=== PATIENT | male | born 1975 | race Hispanic/Latino ===

== ENCOUNTER 2023-08-11 10:02 | Inpatient (IN) | payer SELFPAY, OTHER ==
[2023-08-11] MEDS ORDERED: CEFAZOLIN 2 GM VIAL ONE ×2 (10:11→17:39)
[2023-08-11] MEDS ORDERED: Boostrix 0.5 ML (Tdap) VIAL (>/=7 yrs of age) ONE (10:11)
[2023-08-11] MEDS ORDERED: Ondansetron PF 4 MG/2 ML Vial ONE (10:30)
[2023-08-11] MEDS ORDERED: Morphine 4 MG/ML VIAL ONE (10:30)
[2023-08-11] MEDS ORDERED: Lidocaine 1% w/Epinephrine 1:100K 20 ML VIAL ONE (10:42)
[2023-08-11] MEDS ORDERED: Iopamidol-370 76% 500 ML MDV (1 ML CHARGE) ONE (10:55)
[2023-08-11 11:35] LABS: #Basophils Less than 0.03 10x3/uL (0.0-0.2); %Basophils 0.1 % (0.0-1.0); %Eosinophils 1.7 % (0.0-10.0); %Lymphocytes 18.4 % (21.0-51.0); %Neutrophils 73.5 % (42.0-75.0); Hematocrit 45.3 % (42.0-52.0); Hemoglobin 15.7 g/dL (14.0-18.0); Mean Corpuscular HGB CONC 34.7 g/dL (32.0-36.0); Mean Corpuscular Volume 86.5 fL (78.0-98.0); Mean Platelet Volume 10.4 fL (7.4-10.4); Platelet Count 253 10x3/uL (130-400); RBC Distribution Width 13.4 % (11.5-14.5); Red Blood Cell (RBC) Count 5.24 mill/uL (4.70-6.10)
[2023-08-11] MEDS ORDERED: CEFAZOLIN 2 GM in Sodium Chloride 0.9% 100 ML IVPB SCH (11:45)
[2023-08-11 12:13] LABS: ALT (SGPT) 18 U/L (8-55); AST (SGOT) 23 U/L (5-34); Albumin 3.8 g/dL (3.5-5.0); Alkaline Phosphatase 83 U/L (40-110); Anion Gap 15 mmol/L (10-20); BUN (Urea Nitrogen) 10 mg/dL (8.9-20.6); Bilirubin, Total 0.5 mg/dL (0.2-1.2); Calc. Creatinine Clearance 0 mL/min (70-130); Calcium 8.8 mg/dL (7.8-10.44); Carbon Dioxide 21 mmol/L (22-29); Chloride 110 mmol/L (98-107); Estimated GFR 106; Globulin 3.1 g/dL (2.4-3.5); Glucose 100 mg/dL (70-105); Potassium 4.5 mmol/L (3.5-5.1); Protein, Total 6.9 g/dL (6.0-8.3); Sodium 141 mmol/L (136-145)
[2023-08-11 14:03] VITALS: BMI 26.2
[2023-08-11] MEDS: Morphine 4 MG/ML VIAL SLOW IVP PRN (14:23)
[2023-08-11] MEDS ORDERED: Sodium Chloride 0.9% 100 ML ONE (17:39)
[2023-08-11] MEDS ORDERED: PROPOFOL 20 ML ONE (17:47)
[2023-08-11] MEDS ORDERED: Lidocaine 1% PF 5 ML VIAL ONE (17:47)
[2023-08-11] MEDS ORDERED: fentaNYL 50 mcg/mL 1 mL Vial ONE ×3 (17:55→19:15)
[2023-08-11] MEDS ORDERED: fentaNYL PF 100 MCG/2 ML SYRINGE ONE (18:06)
[2023-08-11] MEDS ORDERED: Ketamine In 0.9 % NaCl 50 MG/5 ML SYRINGE ONE (18:06)
[2023-08-11] MEDS ORDERED: Midazolam HCl 2 mg/2 ml Vial ONE (18:07)
[2023-08-11] MEDS ORDERED: HYDROmorphone 2 MG/ML VIAL SLOW IVP PRN (18:14)
[2023-08-11] MEDS ORDERED: Ondansetron HCl/PF 4 MG/2 ML Vial IVP PRN (18:14)
[2023-08-11] MEDS ORDERED: Promethazine HCl 25 MG/ML VIAL IM PRN (18:14)
[2023-08-11] MEDS ORDERED: Communication Order-Pharmacy FS SCH (18:33)
[2023-08-11] MEDS: TETANUS, DIPHTHERIA TOX,ADULT (TDVAX) 0.5 ML VIAL IM ONE (19:44)
[2023-08-11] MEDS: HYDROcodone/Acetaminophen 5/325 mg Tablet PO PRN (20:26)
[2023-08-12] MEDS: CEFAZOLIN 2 GM in Sodium Chloride 0.9% 100 ML IVPB SCH (02:19)
[2023-08-12 05:48] LABS: #Basophils Less than 0.03 10x3/uL (0.0-0.2); %Basophils 0.1 % (0.0-1.0); %Eosinophils 1.5 % (0.0-10.0); %Monocytes 9.9 % (0.0-10.0); %Neutrophils 65.1 % (42.0-75.0); Hematocrit 39.4 % (42.0-52.0); Hemoglobin 13.6 g/dL (14.0-18.0); Mean Corpuscular HGB CONC 34.5 g/dL (32.0-36.0); Mean Corpuscular Hemoglobin 29.9 pg (27.0-31.0); Mean Corpuscular Volume 86.6 fL (78.0-98.0); Mean Platelet Volume 9.9 fL (7.4-10.4); Platelet Count 215 10x3/uL (130-400); RBC Distribution Width 13.2 % (11.5-14.5); Red Blood Cell (RBC) Count 4.55 mill/uL (4.70-6.10)
[2023-08-12 05:59] LABS: Anion Gap 12 mmol/L (10-20); BUN (Urea Nitrogen) 9 mg/dL (8.9-20.6); Calc. Creatinine Clearance 102 mL/min (70-130); Calcium 8.5 mg/dL (7.8-10.44); Carbon Dioxide 24 mmol/L (22-29); Chloride 104 mmol/L (98-107); Estimated GFR 109; Glucose 104 mg/dL (70-105); Potassium 3.6 mmol/L (3.5-5.1); Sodium 136 mmol/L (136-145)
[2023-08-13 10:24] VITALS: BMI 26.2
[2023-08-13] MEDS ORDERED: PROPOFOL 20 ML ONE ×2 (13:08→14:09)
[2023-08-13] MEDS ORDERED: fentaNYL PF 100 MCG/2 ML SYRINGE ONE ×2 (13:08→15:03)
[2023-08-13] MEDS ORDERED: Midazolam HCl 2 mg/2 ml Vial ONE (13:09)
[2023-08-13] MEDS ORDERED: Lidocaine 1% PF 5 ML VIAL ONE (13:09)
[2023-08-13] MEDS ORDERED: Bacitracin Zinc Ointment 30 gm TUBE ONE (13:29)
[2023-08-13] MEDS ORDERED: Mineral Oil Sterile 10 ML VIAL ONE (13:29)
[2023-08-13] MEDS ORDERED: Thrombin 5000 UNITS/5 ML VIAL ONE (13:29)
[2023-08-13] MEDS ORDERED: CEFAZOLIN 2 GM VIAL ONE (13:42)
[2023-08-13] MEDS ORDERED: Sodium Chloride 0.9% 100 ML ONE (13:42)
[2023-08-13] MEDS ORDERED: Ketamine In 0.9 % NaCl 50 MG/5 ML SYRINGE ONE (14:07)
[2023-08-13] MEDS ORDERED: Bupivacaine PF 0.5% 30 ML VIAL ONE (15:08)
[2023-08-13] MEDS ORDERED: Dexamethasone 20 MG/5 ML VIAL ONE (15:10)
[2023-08-13] MEDS: Ondansetron PF 4 MG/2 ML Vial IVP PRN (17:23)
[2023-08-13] MEDS: Vancomycin 1 GM in Premix 1 BAG IVPB SCH (18:09)
[2023-08-13] MEDS: CEFAZOLIN 2 GM in Sodium Chloride 0.9% 100 ML IVPB SCH (21:18)
[2023-08-13] MEDS: traMADol HCl 50 MG TAB PO PRN (23:21)
[2023-08-14 08:11] VITALS: BP 141/93; TEMP 97.6
[2023-08-14] MEDS ORDERED: HYDROcodone/Acetaminophen 5/325 mg Tablet PO PRN (12:27)
== END 2023-08-14 13:47 | disposition home or self-care (01) | DRG 502 ==
LOC: ERS 10:02 → SURG B 11:48
PROVIDERS: ADMIT Surgery; ATTEND Surgery
PROC: 0JDH0ZZ Extraction of Left Lower Arm Subcutaneous Tissue and Fascia, Open Approach (ICD-10-PCS; 2023-08-11)
PROC: 0JCH0ZZ Extirpation of Matter from Left Lower Arm Subcutaneous Tissue and Fascia, Open Approach (ICD-10-PCS; 2023-08-11)
PROC: 0KBB0ZZ Excision of Left Lower Arm and Wrist Muscle, Open Approach (ICD-10-PCS; principal; 2023-08-13)
PROC: 0LQ60ZZ Repair Left Lower Arm and Wrist Tendon, Open Approach (ICD-10-PCS; 2023-08-13)
DX: S46.322A Laceration of muscle, fascia and tendon of triceps, left arm, initial encounter (principal); S51.022A Laceration with foreign body of left elbow, initial encounter; I10 Essential (primary) hypertension; S51.002A Unspecified open wound of left elbow, initial encounter; Z98.890 Other specified postprocedural states; V89.2XXA Person injured in unspecified motor-vehicle accident, traffic, initial encounter
CPT/HCPCS: 36415; 36416; 70450; 70498; 71260; 72125; 74177; 80048; 80053; 85025; 90715; 97139; G0390; J0665; J1100; J2250; J2270; J2405; J2704; J3010; J3370-JW; J3490; Q9967